=== PATIENT | male | born 1955 | race Caucasian/White ===

== ENCOUNTER 2021-09-22 14:29 | Emergency (ER) | payer OTHER, MEDICARE ==
[2021-09-22 14:59] VITALS: BP 124/78; PULSE 68; RESP 16; TEMP 98.5; BMI 21.9
== END 2021-09-22 15:46 | disposition home or self-care (01) ==
LOC: FER 14:29
DX: N41.0 Acute prostatitis (principal)
CPT/HCPCS: 81003; 81015; 99283-25